=== PATIENT | female | born 1990 | race Two or more races ===

== ENCOUNTER 2023-11-22 18:13 | Emergency (ER) | payer OTHER ==
[~2023-11-22] VITALS: Ht 160 cm; Wt 68.0 kg
[2023-11-22] MEDS ORDERED: LIDOCAINE/PRILOCAINE (5GM) 5 GM TUBE TP ONE (18:40)
[2023-11-22] MEDS ORDERED: ACETAMINOPHEN ES 500 MG TABLET ONE (18:42)
[2023-11-22] MEDS ORDERED: TDAP [DIPH/PERTUSSIS/TET] 0.5 ML VIAL IM ONE (18:42)
[2023-11-22] MEDS: TDAP [DIPH/PERTUSSIS/TET] 0.5 ML VIAL IM ONE (18:56)
[2023-11-22] MEDS: LIDOCAINE/PRILOCAINE 1 EA KIT TP ONE (18:57)
[2023-11-22] MEDS: ACETAMINOPHEN ES 500 MG TABLET PO ONE (18:57)
[2023-11-22 19:27] LABS: PREGNANCY TEST URINE QUAL NEGATIVE (NEGATIVE)
[2023-11-22 22:39] VITALS: BP 136/87; TEMP 98.4; O2SAT 100
== END 2023-11-22 22:40 | disposition home or self-care (01) ==
LOC: ER 18:59
DX: S01.01XA Laceration without foreign body of scalp, initial encounter (principal); S09.8XXA Other specified injuries of head, initial encounter; M79.641 Pain in right hand; W52.XXXA Crushed, pushed or stepped on by crowd or human stampede, initial encounter; Y93.89 Activity, other specified; Y92.89 Other specified places as the place of occurrence of the external cause; Y99.8 Other external cause status
CPT/HCPCS: 12002; 70450; 73080; 84703; 90471; 90715; 99285; A6403